=== PATIENT | male | born 1990 | race Caucasian/White ===

== ENCOUNTER 2017-07-01 08:02 | Day surgery (SDC) | payer BC, OTHER ==
[2017-07-01 08:51] VITALS: BMI 22.3
[2017-07-01] MEDS ORDERED: BUPIVACAINE HCL/PF 2.5 MG/ML - 30 ML VIAL IJ ONE (09:59)
[2017-07-01] MEDS ORDERED: MIDAZOLAM HCL 2 MG/2 ML SINGLE DOSE VIAL ONE (10:00)
[2017-07-01] MEDS ORDERED: BUPIVACAINE HCL/PF 0.25% (2.5MG/ML) 10 ML VIAL IJ ONE (11:16)
[2017-07-01] MEDS ORDERED: ONDANSETRON 4 MG/2 ML VIAL ONE (11:32)
[2017-07-01] MEDS ORDERED: ONDANSETRON 4 MG/2 ML VIAL IVPUSH PRN (12:03)
[2017-07-01] MEDS ORDERED: oxyCODONE HCL 5 MG TABLET PO PRN ×2 (12:03)
[2017-07-01] MEDS ORDERED: LACTATED RINGERS SOLUTION 1,000 ML IV SCH (12:15)
[2017-07-01 12:29] VITALS: TEMP 98
[2017-07-01 14:39] VITALS: BP 130/70; PULSE 78
--- NOTE | 2017-07-03 22:56 | OP ---
DATE OF OPERATION: 07/01/2017 SURGEON: Sam Childers M.D. [employer]UCK SALES MANAGER: Bonnie Wright PREOPERATIVE DIAGNOSIS: 1. Right knee medial lateral meniscal tear. 2. Right knee cartilage injury. 3. Right knee synovitis. POSTOPERATIVE DIAGNOSIS: 1. Right knee medial lateral meniscal tear. 2. Right knee cartilage injury. 3. Right knee synovitis. PROCEDURE: 1. Right knee arthroscopy, partial meniscectomy medial and lateral meniscus. 2. Right knee arthroscopy with chondroplasty and abrasion plasty. 3. Right knee arthroscopy synovectomy including removal of medial plica. FINDINGS: 1. Medial meniscus posterior horn undersurface tear. 2. Lateral meniscus posterior horn anterior horn tear. 3. Synovitis patellofemoral medial lateral notch area. 4. No evidence of cartilage injury medial joint. 5. Partial PCL tear 15%. 6. Grade 1 cartilage injury anterior lateral tibial plateau. 7. Antegrade 4 cartilage injury . 8. Examination under anesthesia showed no evidence of instability. 9. Diffuse inflammation of posterior joint of long posterior capsule. PROCEDURE: Informed consent was obtained. The patient came to the operating room, where the lower extremity was prepped and draped in a sterile fashion. A tourniquet was placed on the upper thigh, but not inflated. Using standard arthroscopic technique, a lateral incision and portal was made to allow for introduction of the camera into the suprapatellar bursa. This was then taken to the medial joint line, where under direct visualization, a medial incision and portal was made. Excessive synovium noted in the medial, lateral and patellofemoral and notch area was removed by an upbiter, shaver and Bovie cautery. This was found to bring in inflammatory tissue into the joint surface, a source of pain and dysfunction. Probing of the medial and lateral meniscus found tears, as described in the findings. These were removed with the upbiter and shaver and taken back to a stable rim. Grade 2 to 3 degenerative changes were treated with a chondroplasty, removing all flaking surfaces with low-setting Bovie along the periphery to prevent further flaking. Grade 4 changes, as noted, were treated with an abrasoplasty, creating a bleeding surface at the bone/cartilage interface. Aggressive debridement with shaver/kaylen created bleeding surface. Mirco fracture also done when indicated in findings All areas of the knee were once again reexamined. The knee was then drained and a single suture was placed in all portals. A sterile dressing was placed and the patient was transferred to the recovery room without complication. ADDENDUM: Please note the patient had extensive tearing along the hamstring capsular portion. Exam under anesthesia showed good stability to ACL, PCL, MCL, and LCL. Partial PCL tear was debrided but remaining PCL showed good stability. Patient had . SAM CHILDERS M.D. [id number]
--- NOTE | 2017-07-06 16:10 | PATH ---
Surgical Pathology Report Patient Name: JATIN DEUTSCH [facility]. Rec. #: [id number] /Age/Gender: 1990 (Age: 27) / M Account: [id number] [facility] Taken: 07/01/2017 Received: 07/01/2017 Reported: 07/06/2017 Physicians: aSm De Jesus M.D. Specimen(s) Received RIGHT KNEE SHAVINGS Clinical History Right knee internal derangement Final Diagnosis KNEE, RIGHT, ARTHROSCOPIC SHAVINGS: FIBROSYNOVIAL TISSUE SHOWING CHRONIC INFLAMMATION AND REACTIVE CHANGES. FIBRINO-HEMORRHAGIC EXUDATE. Electronically Signed Amber Kolb M.D. Gross Description Received in formalin, labeled "right knee shavings," is a 4.5 x 4.0 x 0.3 cm. aggregate of alxe-yellow soft tissue fragments. A corporate sales representative portion is submitted in one cassette. /07/04/201707/04/2017
== END 2017-07-01 14:25 | disposition home or self-care (01) ==
LOC: FASU 08:02
PROVIDERS: ATTEND Orthopaedic Surgery
PROC: 0SBC4ZZ Excision of Right Knee Joint, Percutaneous Endoscopic Approach (ICD-10-PCS; 2017-07-01)
PROC: 0SBC4ZZ Excision of Right Knee Joint, Percutaneous Endoscopic Approach (ICD-10-PCS; 2017-07-01)
PROC: 0SBC4ZZ Excision of Right Knee Joint, Percutaneous Endoscopic Approach (ICD-10-PCS; principal; 2017-07-01 11:00)
DX: S83.241A Other tear of medial meniscus, current injury, right knee, initial encounter (principal); S83.281A Other tear of lateral meniscus, current injury, right knee, initial encounter; S83.8X1A Sprain of other specified parts of right knee, initial encounter; M65.861 Other synovitis and tenosynovitis, right lower leg; X58.XXXA Exposure to other specified factors, initial encounter; Y93.9 Activity, unspecified; Y92.9 Unspecified place or not applicable
CPT/HCPCS: 88304-TC; 94760